=== PATIENT | female | born 2000 | race Caucasian/White ===

== ENCOUNTER 2025-04-05 19:54 | Emergency (ER) | payer OTHER ==
[~2025-04-05] VITALS: Ht 167.6 cm; Wt 101.0 kg
[~2025-04-05 19:54] MED LIST: ALLERGY4 MG PO; MACROBID 100 M100 MG PO; TYLENOL325 MG PO
[2025-04-05] MEDS ORDERED: IBLOOD GLUCOSE TEST STRIP 1 EA TEST XX ONE (20:45)
[2025-04-05 20:54] LABS: BASOPHILS 0.6 % (0.1-1.2); EOSINOPHILS 2.1 % (0.7-5.8); LYMPHOCYTES 18.1 % (19.3-51.7); MCH 31.8 PG (25.6-32.2); MCHC 34.7 g/dL (32.2-35.5); MCV 91.7 fL (79.4-94.8); MONOCYTES 5.1 % (4.7-12.5); NEUTROPHILS 73.8 % (34.0-71.1); RBC 4.56 M/uL (3.93-5.22)
[2025-04-05 21:22] LABS: ALT (SGPT) 27 U/L (14-59); AST (SGOT) 15 U/L (15-37); GLOMERULAR FILTRATION RATE,EST 71 mL/min (>60); PROTEIN, TOTAL 8.2 g/dL (6.4-8.2); UREA NITROGEN 11 mg/dL (7-18)
[2025-04-05 22:48] VITALS: BP 119/75
--- NOTE | 2025-04-06 12:12 | EKG ---
[facility] [address] [place], [place] [address] Signed Normal sinus rhythm Normal ECG No previous ECGs available Confirmed by Kayode Underwood DO ([id number]) on 04/06/2025 12:12:26 PM Electronically Signed By: KAYODE UNDERWOOD DO 04/06/251211 PATIENT NAME: ERIK CASIANO Shira Electrocardiogram DATE OF : 89 PHYSICIAN: KAYODE UNDERWOOD DO REPORT #: [id number] REPORT IS CONFIDENTIAL AND NOT TO BE RELEASED WITHOUT AUTHORIZATION
== END 2025-04-05 22:50 | disposition home or self-care (01) ==
LOC: ED 19:54
PROVIDERS: Emergency Medicine
DX: R55 Syncope and collapse (principal); Z88.0 Allergy status to penicillin; Z88.8 Allergy status to other drugs, medicaments and biological substances
CPT/HCPCS: 36415; 80053; 83735; 84484; 84703; 85025; 93005; 93010; 99284